=== PATIENT | male | born 1970 | race American Indian/Alaskan Native ===

== ENCOUNTER 2022-01-28 10:32 | Day surgery (SDC) | payer OTHER ==
[2022-01-28 11:32] LABS: Hematocrit 46.4 % (35.5-45.6); Hemoglobin 15.4 gm/dl (11.8-15.2); Mean Corpuscular HGB Conc 33 % (32-34); Mean Corpuscular Volume 86 fl (84-94); Platelet Count 199 K/mm3 (140-440); Red Blood Count 5.37 M/mm3 (3.65-5.03); Red Cell Distribution Width 13.5 % (13.2-15.2)
[2022-01-28 11:45] LABS: BUN/Creatinine Ratio 5; Blood Urea Nitrogen 5 mg/dL (9-20); Calcium 9.7 mg/dL (8.4-10.2); Hemolysis Index 5
[2022-01-28 11:49] LABS: INR 0.95 (0.87-1.13)
[2022-01-28] MEDS: SODIUM CHLORIDE 0.9% 500 ML 500 ML IV SCH ×2 (12:03→13:00)
[2022-01-28] MEDS ORDERED: HEPARIN/NS 5000 UNIT/500ML 1,000 ML IR ONE (12:27)
[2022-01-28] MEDS ORDERED: HEPARIN 10,000 UNITS/10 ML VIAL ONE (12:28)
[2022-01-28] MEDS ORDERED: VERAPAMIL 5 MG/2 ML INJ ONE (12:28)
[2022-01-28] MEDS ORDERED: MIDAZOLAM 2 MG/2 ML INJ ONE (12:28)
[2022-01-28] MEDS ORDERED: NITROGLYCERIN SYRINGE 3 ML ONE (12:29)
[2022-01-28] MEDS ORDERED: LIDOCAINE (1%) 10 MG/1 ML VIAL 20 ML MDV ONE (12:30)
[2022-01-28 13:06] LABS: Large Platelets Few; Platelet Estimate Consistent w Auto; RBC Morphology Normal; Total Cells Counted 100
[2022-01-28] MEDS: fentaNYL 100 MCG/2 ML INJ ONE ×2 (13:08→13:32)
[2022-01-28] MEDS ORDERED: NITROGLYCERIN DRIP 50 MG/250 ML BOTTLE ONE (13:31)
--- NOTE | 2022-01-28 14:06 | Cardiac Catherization Report ---
DATE OF SERVICE: 01/28/2022 CARDIAC CATHETERIZATION REPORT REASON FOR PROCEDURE: Unstable angina. PROCEDURES: 1. Left heart catheterization. 2. Selective left and right coronary angiography. 3. Left ventricular angiography. 4. Sedation time start 1309, end 1334. DESCRIPTION OF PROCEDURE: The patient was prepped and draped in a sterile fashion after informed consent. The right radial cath site was prepped and draped after negative Rai's test. The right radial artery was entered using Seldinger technique followed by placement of a 6-Macanese hydrophilic sheath. Routine radial cocktail was administered via the sheath. Selective left and right coronary angiography was performed, we used a 3.0 left Ashley catheter for left coronary angiography. A German catheter was used for right coronary angiography. A pigtail catheter was used for left ventricular angiography. The catheters were then removed, sheath removed and hemostasis achieved using a TR band. The patient was returned to the postprocedure unit in stable condition. There were no complications. FINDINGS: HEMODYNAMICS: Left ventricular end diastolic pressure was 20, following coronary angiography. Ascending aortic pressure was 179/101. There was no significant pressure gradient on pullback across the aortic valve. CORONARY ANGIOGRAPHY: Left main coronary artery was free of significant disease. The first diagonal branch of the LAD was a large vessel that contained diffuse mild atherosclerosis. Following that, there was a 90% bifurcation stenosis of the mid LAD involving a medium sized mid diagonal branch. The mid diagonal branch itself had an additional, long 95% stenosis of its proximal segment extending from its ostium. Following the severe bifurcation stenosis of the mid LAD, there was another, 80% stenosis of the mid to distal segment. This was followed by mild atherosclerosis of the LAD leading to diffuse severe disease of the small apical segment of the LAD. The mid obtuse marginal branch of the LAD also contained diffuse disease. There was a long, greater than 90% stenosis of the mid segment of this vessel. The right coronary artery was dominant. This vessel contained diffuse mild atherosclerosis associated with extension of the proximal and mid AV groove segments. The right posterior descending branch of the distal right coronary artery contained severe diffuse disease in its distal segment. The posterior left ventricular branch, which was a terminal branch of the right coronary artery, was completely occluded in its distal segment. There was some faint collateralization of the terminal segments of this branch from the left coronary system. The left ventricle was mildly to moderately dilated. There was moderate to moderately severe left ventricular systolic dysfunction with left ventricular ejection fraction 35-40%. CONCLUSION: 1. Severe 3-vessel coronary artery disease. 2. Ischemic cardiomyopathy, moderate to moderately severe left ventricular systolic dysfunction, ejection fraction 35-40%. RECOMMENDATIONS: The patient will be referred for CT surgery assessment. We will place the patient on anti-ischemic therapy including intravenous nitroglycerin, oral antiplatelets and intravenous anticoagulants on transfer. TID: [id number] RECEIPT: [id number] LYNDA/[facility]
[2022-01-28] MEDS ORDERED: traMADol 50 MG TAB PO PRN (14:07)
--- NOTE | 2022-01-28 14:07 | Discharge Summary ---
Short Stay Discharge Plan Activity: other (Bedrest) Diet: low fat, low cholesterol, low salt Wound: keep clean and dry Additional Instructions: Outpatient cardiac catheterization completed via the right radial approach. Patient has severe three-vessel disease, recommend inpatient transfer for CT surgery assessment. We will start the patient on intravenous nitroglycerin and heparin. Follow up with: EDYTA KLEIN MD [Primary Care Provider] - 7 Days
[2022-01-28] MEDS ORDERED: HEPARIN 10,000 UNITS/10 ML VIAL IV PRN (14:09)
[2022-01-28] MEDS ORDERED: SODIUM CHLORIDE 0.9% 1000 ML 1,000 ML IV SCH (14:15)
[2022-01-28] MEDS ORDERED: cloNIDine 0.1 MG TAB PO PRN (14:27)
[2022-01-28] MEDS ORDERED: HEPARIN/ 0.45% NACL DRIP 25,000 UNIT/500 ML BAG ONE (14:31)
[2022-01-28] MEDS ORDERED: ASPIRIN 81 MG TAB CHEW ONE (14:31)
[2022-01-28] MEDS ORDERED: ASPIRIN EC 81 MG TAB PO SCH (15:00)
[2022-01-28] MEDS ORDERED: METOPROLOL TARTRATE 50 MG TAB PO SCH (15:00)
[2022-01-28] MEDS ORDERED: HEPARIN/ 0.45% NACL DRIP 25,000 UNIT/500 ML BAG IV SCH (15:00)
[2022-01-28] MEDS ORDERED: NITROGLYCERIN DRIP 50 MG/250 ML BOTTLE IV SCH (15:00)
[2022-01-28] MEDS ORDERED: LISINOPRIL 5 MG TAB PO SCH (15:00)
[2022-01-28] MEDS ORDERED: LISINOPRIL 10 MG TAB PO SCH (15:00)
[2022-01-28 21:39] VITALS: BP 131/86
--- NOTE | 2022-01-29 11:26 | Electrocardiograph Report ---
[facility] Test Date: 2022-01-28 Test Time: 11:38:37 Pat Name: CHARLY SALDIVAR Department: Room: Gender: M [employer]ill [employer] Tender: BIENVENIDO : 1970 Requested By: HUE MALLOY Order Number: [id number] Reading MD: Jimmy Marcano Measurements Intervals [place] Rate: 74 P: 33 TN: 145 QRS: -23 QRSD: 93 T: -8 QT: 388 QTc: 433 Interpretive Statements Sinus rhythm No previous ECG available for comparison Electronically Signed On 01-29-2022 11:26:03 EDT by Jimmy Marcano
== END 2022-01-28 21:10 | disposition critical access hospital (66) ==
LOC: CATHLABREC 10:32
PROVIDERS: ATTEND Internal Medicine Cardiovascular Disease
DX: I25.110 Atherosclerotic heart disease of native coronary artery with unstable angina pectoris (principal); I25.5 Ischemic cardiomyopathy; E78.5 Hyperlipidemia, unspecified; I10 Essential (primary) hypertension; Z79.899 Other long term (current) drug therapy; Z79.82 Long term (current) use of aspirin; Z98.890 Other specified postprocedural states
CPT/HCPCS: 36415; 80048; 85007; 85025; 85610; 85730; 93005; 93458; 99156; 99157; C1887; C1894; J1644; J1815; J2250; J3010; J3490; J7040; Q9967